=== PATIENT | female | born 1995 | race Caucasian/White ===

== ENCOUNTER 2022-02-22 00:21 | Emergency (ER) | payer SELFPAY ==
[2022-02-22 00:49] VITALS: BP 129/85; PULSE 68; TEMP 98.3; BMI 20.6
== END 2022-02-22 02:04 | disposition home or self-care (01) ==
LOC: JER 00:21
DX: M79.672 Pain in left foot (principal); W50.0XXA Accidental hit or strike by another person, initial encounter
CPT/HCPCS: 73630-TC-LT; 99283-25